=== PATIENT | female | born 1990 | race African-American/Black ===

== ENCOUNTER 2017-12-19 21:46 | Emergency (ER) | payer OTHER ==
[~2017-12-19] VITALS: Ht 165.1 cm; Wt 90.7 kg
--- NOTE | ~2017-12-19 | EKG ---
[place] [address] [facility] [employer] [place] [address] ELECTROCARDIOGRAM REPORT Name: LEOLA ABDI [facility] [id number] Admission: 12/19/17 Attend Phys: Discharge: 12/20/17 Date of : 89 Report #: [id number] THIS REPORT FOR: //name// [facility] ED Test Date: 2017-12-19 Test Time: 23:46:35 Pat Name: LEOLA ABDI Department: Room: Gender: F Adult Education Manager: Francesco PRESCOTT : 1990 Requested By: Johny Chauhan Order Number: [id number] MD: Ed Mooney Measurements Intervals [place] Rate: 110 P: 51 FL: 145 QRS: 56 QRSD: 75 T: 34 QT: 331 QTc: 448 Interpretive Statements Sinus tachycardia Borderline T abnormalities, anterior leads Baseline wander in lead(s) V1 No previous ECG available for comparison Electronically Signed On 12-20-2017 15:56:28 [employer] by Ed Mooney [email or web address] <ELECTRONICALLY SIGNED> By: Ed Mooney MD, [facility] 12/20/17 1556 [id number] Ed Mooney MD, FACC /EPI
[~2017-12-19 21:46] MED LIST: FLONASE 0.05%50 MCG NASAL; LEXAPRO20 MG PO; NAPROSYN500 MG PO; NORFLEX100 MG PO
[2017-12-20 00:01] LABS: HEMATOCRIT 44.4 % (37.0-47.0); HEMOGLOBIN 15.1 gm/dL (12.0-15.0); MCH 30.8 pg (26.0-34.0); MCV 90.4 fL (80.0-100.0); PLATELET COUNT 282 thou/uL (150-400); RBC 4.91 mil/uL (4.20-5.00); RDW 13.8 % (10.5-14.5); WBC 5.3 thou/uL (4.0-11.0)
[2017-12-20 00:07] LABS: ANION GAP 11 mmol/L (7-16); BUN 9 mg/dL (7-18); CHLORIDE 100 mmol/L (98-107); CO2 25 mmol/L (21-32); CREATININE 1.1 mg/dL (0.6-1.0); GLUCOSE 106 mg/dL (74-106); POTASSIUM 3.3 mmol/L (3.5-5.1); SODIUM 136 mmol/L (136-145)
[2017-12-20 00:17] LABS: TROPONIN-I < 0.04 ng/mL (<0.06)
[2017-12-20 00:37] LABS: ABSOLUTE NEUTROPHILS 3.3 thou/uL (1.4-8.2); ATYPICAL LYMPHS 2 %; LARGE PLATELETS OCCASIONAL
[2017-12-20] MEDS ORDERED: VENTOLIN HFA 1818 GM INH (01:54)
[2017-12-20] MEDS ORDERED: MUCINEX D ER 11 EACH PO (01:54)
[2017-12-20] MEDS ORDERED: NAPROSYN500 MG PO (01:54)
[2017-12-20] MEDS ORDERED: PREDNISONE 20 M20 M1 PO (01:54)
[2017-12-20] MEDS ORDERED: ALBUTEROL2.5 MG/31 INH (02:17)
== END 2017-12-20 02:42 | disposition home or self-care (01) ==
LOC: ER 21:46
PROVIDERS: Emergency Medicine
DX: J06.9 Acute upper respiratory infection, unspecified (principal); J45.909 Unspecified asthma, uncomplicated; M79.1 Myalgia

== ENCOUNTER 2019-01-30 22:03 | Emergency (ER) | payer OTHER ==
[~2019-01-30] VITALS: Ht 165.1 cm; Wt 104.3 kg
[~2019-01-30 22:03] MED LIST changes: +ALBUTEROL2.5 MG/31 INH; +MUCINEX D ER 11 EACH PO; +PREDNISONE 20 M20 M1 PO; +VENTOLIN HFA 1818 GM INH
[2019-01-30] MEDS ORDERED: MOBIC15 MG PO (23:01)
[2019-01-30 23:08] VITALS: BP 134/84
== END 2019-01-30 23:13 | disposition home or self-care (01) ==
LOC: ER 22:03
DX: S60.111A Contusion of right thumb with damage to nail, initial encounter (principal); J45.909 Unspecified asthma, uncomplicated; F41.9 Anxiety disorder, unspecified; F32.89 Other specified depressive episodes; W23.0XXA Caught, crushed, jammed, or pinched between moving objects, initial encounter; Y93.89 Activity, other specified; Y92.89 Other specified places as the place of occurrence of the external cause; Y99.8 Other external cause status

== ENCOUNTER 2019-02-09 19:11 | Emergency (ER) | payer OTHER ==
[~2019-02-09] VITALS: Ht 165.1 cm; Wt 104.3 kg
[~2019-02-09 19:11] MED LIST changes: +MOBIC15 MG PO
[2019-02-09] MEDS ORDERED: PREDNISONE 20 M20 MG PO (19:34)
[2019-02-09] MEDS ORDERED: VENTOLIN HFA 1818 GM INH (19:34)
[2019-02-09 20:33] VITALS: BP 129/87
== END 2019-02-09 20:33 | disposition home or self-care (01) ==
LOC: ER 19:11
DX: J45.901 Unspecified asthma with (acute) exacerbation (principal); Z76.0 Encounter for issue of repeat prescription; F32.9 Major depressive disorder, single episode, unspecified; F41.9 Anxiety disorder, unspecified

== ENCOUNTER 2019-10-22 08:40 | Emergency (ER) | payer OTHER ==
[~2019-10-22] VITALS: Ht 165.1 cm; Wt 104.3 kg
[~2019-10-22 08:40] MED LIST changes: +PREDNISONE 20 M20 MG PO
[2019-10-22] MEDS ORDERED: PREDNISONE 20 M20 MG PO (11:25)
[2019-10-22] MEDS ORDERED: VENTOLIN HFA 1818 GM INH (11:25)
[2019-10-22 12:08] VITALS: BP 132/68
== END 2019-10-22 12:14 | disposition home or self-care (01) ==
LOC: ER 08:40
DX: J45.901 Unspecified asthma with (acute) exacerbation (principal); J06.9 Acute upper respiratory infection, unspecified; E66.9 Obesity, unspecified; F41.9 Anxiety disorder, unspecified; F32.9 Major depressive disorder, single episode, unspecified; Z68.38 Body mass index [BMI] 38.0-38.9, adult